=== PATIENT | male | born 1950 | race Caucasian/White ===

== ENCOUNTER 2022-04-10 07:09 | Outpatient (CLI) | payer MEDICARE, BC, SELFPAY ==
--- NOTE | ~2022-04-10 | MR_ITS ---
EXAMINATION: MR ankle RT wo con DATE: 04/10/2022 08:10 INDICATION: Right lower extremity pain and swelling TECHNIQUE: Magnetic resonance imaging (MRI) of the right ankle was performed without intravenous cont rast. Sequences included axial, sagittal and coronal PD-weighted FSE and fluid sensitive FSE STIR. COMPARISON: None. FINDINGS: Bones/other: Prominent metallic magnetic field artifact centered at the ankle joint which suggests a prior arthrop lasty. There appears to be an anchoring screw tract at the lateral aspect of the posterior calcaneus likely related to repair of the calcaneofibular ligament which appears thickened with increased signa l in the region of the entrance to the screw tract. There is an additional screw extending from dista l to proximal coquille tip at the medial malleolus into the posterior metaphyseal region of the distal tibia which suggests fixation of a prior medial malleolar fracture. Correlate with clinical/surgical history. Bone marrow signal is otherwise unremarkable. No acute fracture or pathologic marrow replaci ng process. Ankle ligaments: The region of the deep and superficial deltoid ligaments is obscured by the magnetic field artifact. The spring ligament complex appears grossly intact although assessment of the superomedial component is limited by the artifact. This also limits evaluation of the lateral sided stabilizing ligaments of the ankle. Suggestion of prior repair of the calcaneofibular ligament is previously detailed. Tendons: Moderate Achilles tendinosis and full-thickness tear with right-sided tear margin. The majority of th e thickness of the tendon is torn 7 cm from the footplate with a small portion of the lateral side of the tendon torn 5 cm from the distal footplate. There is approximately 1.5 cm proximal retraction of the corresponding tear margins. Mild tendinopathy of the peroneus brevis tendon with likely small lo ngitudinal split tear of the peroneus brevis tendon near the level of the tip of the lateral malleolu s. Mild to moderate tendinopathy of the peroneus longus tendon with prominent thickening and mild inc reased signal without discrete tear most prominent at the level of the distal calcaneus. The tibialis anterior and extensor hallucis longus and extensor digitorum longus tendons are normal. The tibialis posterior, flexor digitorum longus and flexor hallucis longus tendons are normal. Plantar fascia: The plantar aponeurosis is normal. Fluid: Small fluid collection at the site of the Achilles tendon tear defect. More diffuse mild soft tissue edema about the ankle and hindfoot. No joint effusions or other abnormal fluid collections. IMPRESSION: 1. Full-thickness Achilles tendon tear with moderate underlying tendinosis. 2. Postoperative changes at the ankle as detailed above suggesting prior tibiotalar arthrodesis, fixa tion of a medial malleolar fracture and reconstruction of the posterior calcaneofibular ligament. Cor relate with surgical history. 2. Tendinopathy of the peroneus longus and brevis tendons likely small longitudinal split tear of the latter. Reviewed, dictated and finalized at location B. IMPRESSION: 1. Full-thickness Achilles tendon tear with moderate underlying tendinosis. 2. Postoperative changes at the ankle as detailed above suggesting prior tibiot alar arthrodesis, fixation of a medial malleolar fracture and reconstruction of the posterior calcaneofibular ligament. Correlate with surgical history. 2. Tendinopathy of the peroneus longus and brevis tendons likely small longitud inal split tear of the latter.
== END 2022-04-10 07:10 | disposition home or self-care (01) ==
PROVIDERS: PCP Family Medicine; Visit Provider Orthopaedic Surgery
DX: M79.604 Pain in right leg (principal); M79.89 Other specified soft tissue disorders; S86.011A Strain of right Achilles tendon, initial encounter; Z98.890 Other specified postprocedural states; M76.61 Achilles tendinitis, right leg; M77.51 Other enthesopathy of right foot and ankle
CPT/HCPCS: 73721